=== PATIENT | male | born 1940 | race Caucasian/White ===

== ENCOUNTER 2017-09-26 13:05 | Emergency (ER) | payer OTHER, MEDICARE, BC ==
[~2017-09-26] VITALS: Ht 182.9 cm; Wt 84.0 kg
[2017-09-26 13:14] VITALS: BP 146/85; PULSE 81; RESP 16; TEMP 97.7; O2SAT 96
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
[2017-09-26] MEDS ORDERED: FENO48TA PO (14:09)
[2017-09-26] MEDS ORDERED: LISI-519 PO (14:09)
[2017-09-26] MEDS ORDERED: CALC600T64 PO (14:09)
[2017-09-26] MEDS ORDERED: ASPI81TA23 PO (14:09)
[2017-09-26] MEDS ORDERED: ZOCO80TA PO (14:09)
[2017-09-26] MEDS ORDERED: VALT1TAB PO (14:09)
[2017-09-26] MEDS ORDERED: EMTR1TAB5 PO (14:09)
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
[2017-09-26 16:01] VITALS: BP 104/64
== END 2017-09-26 16:10 | disposition home or self-care (01) ==
LOC: PHED 13:05
DX: S06.0X0A Concussion without loss of consciousness, initial encounter (principal); R42 Dizziness and giddiness; V49.49XA Driver injured in collision with other motor vehicles in traffic accident, initial encounter; Y92.410 Unspecified street and highway as the place of occurrence of the external cause
CPT/HCPCS: 70450; 72125; 99283